=== PATIENT | male | born 2000 | race African-American/Black ===

== ENCOUNTER 2021-09-11 17:13 | Emergency (ER) | payer MEDICAID ==
[~2021-09-11] VITALS: Ht 162.6 cm; Wt 69.0 kg
[2021-09-11 17:17] VITALS: BP 130/75
[2021-09-11] MEDS ORDERED: VISCOUS LIDOCAINE 2% 15 ML UDC PO STA (17:28)
[2021-09-11] MEDS ORDERED: MAGNESIUM/ALUMINUM HYDROXIDE/SIMETHICONE 30ML UDC PO STA (17:28)
[2021-09-11] MEDS ORDERED: SODIUM CHLORIDE 0.9% 1,000 ML IV ONE (17:30)
[2021-09-11 19:13] LABS: BASOPHILS % 0.3 % (0.0-2.0); EOSINOPHILS % 0.2 % (0.0-5.0); HEMATOCRIT. 44.7 % (42.0-52.0); HEMOGLOBIN. 15.4 g/dL (14.0-18.0); MEAN CORPUSCULAR HEMOGLOBIN 31.7 pg (28.0-32.0); MEAN CORPUSCULAR VOLUME 92.3 fL (80.0-94.0); MEAN PLATELET VOLUME 8.1 fl (7.4-10.4); MONOCYTES % 13.2 % (2.0-8.0); NEUTROPHILS % 76.3 % (40.0-76.0); PLATELET 172 x1000/uL (130-400); RED BLOOD CELL COUNT 4.85 mill/uL (4.7-6.1); RED CELL DISTRIBUTION WIDTH 12.7 % (11.6-14.6)
[2021-09-11 19:21] LABS: CHLORIDE 105 mEq/L (98-107)
[2021-09-11 19:24] LABS: ETHANOL BLOOD < 10 mg/dL
== END 2021-09-11 23:29 | disposition home or self-care (01) ==
LOC: ER 17:13
DX: R10.9 Unspecified abdominal pain (principal); Z98.890 Other specified postprocedural states
CPT/HCPCS: 36415; 80053; 80307; 80320; 80329; 83690; 84484; 85025; 93005; 99284; J7030; G0480

== ENCOUNTER 2021-09-12 08:43 | Emergency (ER) | payer MEDICAID ==
[~2021-09-12] VITALS: Ht 175.3 cm; Wt 109.0 kg
[2021-09-12 08:57] VITALS: BP 106/45
== END 2021-09-12 09:58 | disposition home or self-care (01) ==
LOC: ER 08:43
DX: F10.139 Alcohol abuse with withdrawal, unspecified (principal); Y90.9 Presence of alcohol in blood, level not specified
CPT/HCPCS: 99281